=== PATIENT | female | born 1980 | race Caucasian/White ===

== ENCOUNTER 2018-06-14 16:30 | Emergency (ER) | payer OTHER ==
[2018-06-14 16:55] VITALS: BP 96/65; Ht 157.5 cm
== END 2018-06-14 18:45 | disposition home or self-care (01) ==
LOC: ED 16:30
DX: M54.2 Cervicalgia (principal); M54.9 Dorsalgia, unspecified; E07.89 Other specified disorders of thyroid; G51.0 Bell's palsy; Z98.890 Other specified postprocedural states; Z86.2 Personal history of diseases of the blood and blood-forming organs and certain disorders involving the immune mechanism; V48.5XXA Car driver injured in noncollision transport accident in traffic accident, initial encounter; Y93.I9 Activity, other involving external motion; Y92.413 State road as the place of occurrence of the external cause; Y99.8 Other external cause status